=== PATIENT | female | born 2000 | race Hispanic/Latino ===

== ENCOUNTER 2024-04-18 21:12 | Emergency (ER) | payer MEDICAID ==
[~2024-04-18] VITALS: Ht 154.9 cm; Wt 72.1 kg
--- NOTE | 2024-04-18 23:42 | ERN ---
General Chief Complaint: Mechanical Fall Stated Complaint: PAIN TO LEFT PELVIC AREA/ LEFT LEG AND BACK; 22 WK Time Seen by MD: 21:15 Time Seen by Midlevel: 21:15 Source: patient History of Present Illness Initial Comments Patient is a 23-year-old female who is currently 22 weeks attending to the emergency department following a mechanical ground level fall. Patient states she was getting out of the shower when she accidentally slipped. She states she accidentally did a split. She feels her entire left side sore but her main concern is that she was having abdominal pain. No other symptoms reported at this time. Denies any head injury or loss of consciousness. Denies any headache, vision changes, nausea, vomiting, chest pain, or any other symptoms at this time. Allergies: Coded Allergies: No Allergy Information Available (Verified Allergy, 04/05/12) Past Medical History Past Medical History: Diabetes-Type II Past Surgical History: Unknown Female( History) LMP: Nov 12, 2023 : 2 Para: 1 Aborts: 0 ROS Dictation CONSTITUTIONAL: Negative except for HPI HEAD/FACE: Negative except for HPI EENT: Negative except for HPI RESPIRATORY: Negative except for HPI GASTROINTESTINAL/ABDOMINAL: Negative except for HPI GENITOURINARY: Negative except for HPI MUSCULOSKELETAL: Negative except for HPI INTEGUMENTARY: Negative except for HPI NEUROLOGICAL/PSYCH: Negative except for HPI HEMATOLOGIC/LYMPHATIC: Negative except for HPI All Systems Negative, Except as noted above. 13 point review of systems assessed and all negative except for above. Physical Exam Physical Exam Dictation Vital Signs reviewed General Appearance: Alert, oriented x 3, no acute distress, well developed, nourished. Head and Face: non-traumatic. Eyes: PERRL, pink conjunctivas, eyelid no trauma, anterior chamber with arcus senilis. Ears: Pinnas intact and no signs of trauma or erythema ear canals clear and no discharge TM no erythema Nose: No discharge, no bleeding. Oropharynx: Mouth normal, tongue pink, pharynx clear,no erythema, tonsils no exudates, no abscesses noted, mucous membrane moist Neck: Supple, non-tender, no thyromegaly, no masses, no JVD, no bruits Breast:Deferred Chest:No tenderness, no crepitus, no paradoxical movement, no retractions Lungs:Clear, well-ventilated, symmetric, no rales, no wheezing, no rhonchi, no stridor, good breath sounds bilaterally Heart: Regular rate, regular rhythm, no murmur, no gallops Vascular: no peripheral edema, Abdomen: Soft, positive bowel sounds, nondistended, no guarding, nontender, no rebound, no masses no hepatomegaly, no splenomegaly, no Chi's sign, no hernias. Rectal: Deferred Genital: Deferred Neurological: Normal speech, motor function intact, sensory function intact Musculoskeletal: Neck nontender, full range of motion, back nontender, full range of motion, Extremities: nontender, full range of motion Skin: Color pink, dry, no turgor, no rash, no lacerations, no abrasions, no contusions. Lymphatic: Deferred MDM MDM: 23-year-old female currently 22 weeks presenting following a fall. Patient is only concern is for abdominal pain since she was 22 weeks . I did offer x-rays of her lower back and coccyx however she was refusing which I believe is appropriate. Ultrasound was performed which reveals positive heart tones. The patient was observed in the ER for over 2 hours and has remained stable and asymptomatic. I did offer oral Tylenol patient was refusing at this time. Patient states she will follow up outpatient. Return precautions discussed Differential diagnosis: Muscle strain, intrauterine , wellness examination There are no social concerns with this patient. Prescription drug management Prescriptions will include: None Medical management and examination interpretation discussions were had by me with other qualified healthcare professionals as indicated for the patient's care. ED Course Orders Procedure Category Date Status Time Us Ob >14 Weeks US 04/18/24 Taken 21:20 Vital Signs Date Time Temp Pulse Resp B/P (MAP) Pulse Ox O2 Delivery O2 Flow Rate FiO2 04/18/24 21:14 98.8 108 20 119/81 97 Room Air DX & DISP Disposition: Discharge ( male) Departure Impression: Primary Impression: Fall Additional Impression: Second trimester Condition: Stable Additional Instructions: Your ultrasound reveals a heart rate of 154 beats per minute. Your baby is currently measuring 22 weeks and four days. Please follow up with your OBGYN and primary care doctor for outpatient evaluation. Return to the ER if you develop any new or worsening symptoms Referrals: SELF,REFERRAL (PCP) Time of Disposition: 23:42 I have reviewed the case, and I agree with, Diagnosis and Plan KIMBERLY MARIE Apr 18, 2024 23:42
[2024-04-19 00:06] VITALS: BP 118/78; PULSE 92; RESP 16; TEMP 98; O2SAT 98
--- NOTE | 2024-04-19 07:07 | HMCIMG ---
US OB >14 WEEKS HISTORY: Abdominal pain COMPARISON: None TECHNIQUE: ultrasound study was performed. FINDINGS: There is single intrauterine gestation with estimated gestational age of 23 weeks and 2 days. heart rate is 154 beats per minute. The fetus is in breech presentation with longitudinal lie. weight is estimated to be 579 grams. Amniotic fluid volume is 19.8 centimeter. The placenta is located anteriorly. Anechoic area is seen anterior to placenta suggestive of retroplacental hemorrhage measuring 4.1 x 1 x 2.5 cm. No evidence of placenta previa is seen. There is no evidence of nuchal cord. IMPRESSION: 1. There is single intrauterine gestation with estimated gestational age of 23 weeks and 2 days. heart rate is 154 beats per minute. Retroplacental bleeding suspected.
== END 2024-04-19 00:07 | disposition home or self-care (01) ==
LOC: EDH 21:12
DX: O26.892 Other specified pregnancy related conditions, second trimester (principal); O24.112 Pre-existing type 2 diabetes mellitus, in pregnancy, second trimester; Z3A.23 23 weeks gestation of pregnancy; W01.0XXA Fall on same level from slipping, tripping and stumbling without subsequent striking against object, initial encounter; Y93.89 Activity, other specified; Y92.89 Other specified places as the place of occurrence of the external cause; Y99.8 Other external cause status
CPT/HCPCS: 76805; 99284